=== PATIENT | male | born 1955 | race African-American/Black ===

== ENCOUNTER 2016-09-17 07:37 | Emergency (ER) | payer MEDICARE ==
--- NOTE | ~2016-09-17 | EKG ---
PATIENT: AMRIT BAKER UNIT #: [id number] Ventricular Rate: 72 BPM Atrial Rate: 72 BPM P-R Interval: 170 ms QRS Duration: 86 ms Q-T Interval: 402 ms QTC Calculation(Bezet): 440 ms P [place]: 45 degrees Calculated R [place]: -33 degrees Calculated T [place]: 3 degrees Diagnosis Line: Normal sinus rhythm Diagnosis Line: Left axis deviation Diagnosis Line: Nonspecific ST abnormality inferiorly Diagnosis Line: Abnormal ECG Diagnosis Line: No previous ECGs available Diagnosis Line: Confirmed by TRAVIS DSOUZA MD ([id number]) on Diagnosis Line: 09/18/2016 8:50:58 AM INTERPRETING MD: [id number]
[~2016-09-17 07:37] MED LIST: DOXYCYCLINE PO; LISINOPRIL PO; MUCINEX DM1 TAB.SR . PO; PAXIL PO
[2016-09-17 07:43] LABS: BASOPHIL# 0.1 X10e3 (0-0.3); BASOPHIL% 1.1 % (0-2.5); EOSINOPHIL# 0.3 X10e3 (0-0.7); EOSINOPHIL% 4.9 % (0.0-7.0); HEMATOCRIT 31.1 % (38.0-50.0); HEMOGLOBIN 9.6 gm/dL (13.0-16.0); LYMPHOCYTE# 1.7 X10e3 (1.0-3.5); LYMPHOCYTE% 30.3 % (17.0-45.0); MEAN CELL VOLUME 78.5 FL (83-96); MEAN CORPUSCULAR HEMOGLOBIN 24.1 PG (28-34); MEAN CORPUSCULAR HGB CONC 30.8 g/dL (30-36); MONOCYTE# 0.5 X10e3 (0-1.0); MONOCYTE% 9.1 % (3.0-12.0); NEUTROPHIL# 3.1 X10e3 (1.5-7.1); NEUTROPHIL% 54.6 % (40-75); PLATELET COUNT 268 X10e3 (140-420); RED BLOOD COUNT 3.96 X10e (3.90-5.60); RED CELL DISTRIBUTION WIDTH 17.1 % (11.0-15.5); WHITE BLOOD COUNT 5.6 X10e3 (4.0-10.5)
[2016-09-17 07:44] LABS: DIFF IND NO
[2016-09-17 07:54] LABS: POC - CKMB 3.9 ng/mL (0.0-7.9); POC - TROPONIN <0.05 ng/mL (<=0.05)
[2016-09-17 08:18] LABS: ALBUMIN SERUM 3.8 g/dL (3.5-5.0); ALKALINE PHOSPHATASE 63 U/L (32-92); ALT (SGPT) 19 U/L (10-40); AMYLASE 21 U/L (0-46); AST (SGOT) 27 U/L (10-42); BILIRUBIN,TOTAL 0.6 mg/dL (0.2-2.0); BLOOD UREA NITROGEN 16 mg/dL (9-23); BUN/CREATININE RATIO 13.33; CALCIUM SERUM 9.1 mg/dL (8.4-10.2); CARBON DIOXIDE 25 mmol/L (22-31); CHLORIDE 105 mmol/L (100-111); CREATININE SERUM 1.2 mg/dL (0.6-1.4); GLOM FILT RATE Estimated 76.3 mL/min (>60); GLUCOSE FASTING 99 mg/dL (70-110); LIPASE 23 U/L (22-51); POTASSIUM 3.2 mmol/L (3.5-5.1); PROTEIN TOTAL SERUM 8.1 g/dL (6.0-8.3); SODIUM 139 mmol/L (135-145)
[2016-09-17 08:19] LABS: BILIRUBIN, DIRECT <0.1 mg/dL (0.0-0.2); BILIRUBIN,INDIRECT 0.5 mg/dL (0.0-0.9)
== END 2016-09-17 08:50 | disposition home or self-care (01) ==
LOC: CED 07:37
PROVIDERS: Emergency Medicine
DX: K29.70 Gastritis, unspecified, without bleeding (principal); D64.9 Anemia, unspecified; I10 Essential (primary) hypertension; K21.9 Gastro-esophageal reflux disease without esophagitis; Z79.899 Other long term (current) drug therapy
CPT/HCPCS: 36415; 80048; 80076; 82150; 82553; 83690; 84484; 85025; 93005; 99284